=== PATIENT | female | born 1995 | race Caucasian/White ===

== ENCOUNTER 2024-01-05 19:27 | Emergency (ER) | payer MEDICAID ==
[~2024-01-05] VITALS: Ht 177.8 cm; Wt 80.0 kg
[2024-01-05 19:40] VITALS: BP 116/60; TEMP 98.4; O2SAT 99
[2024-01-05] MEDS: HYDROCODONE/ACETAMINOPHEN 5/325MG TABLET PO ONE (20:11)
[2024-01-05 20:33] LABS: BASOPHILS % 0.3 % (0.0-2.0); EOSINOPHILS % 0.9 % (0.0-5.0); HEMATOCRIT. 35.3 % (36.0-48.0); HEMOGLOBIN. 11.8 g/dL (12.0-16.0); LYMPHOCYTES % 10.7 % (20.0-50.0); MEAN CORPUSCULAR HGB CONC 33.3 g/dL (31.0-37.0); MEAN CORPUSCULAR VOLUME 90.1 fL (81.0-99.0); MEAN PLATELET VOLUME 9.1 fl (7.4-10.4); MONOCYTES % 5.1 % (2.0-8.0); PLATELET 203 x1000/uL (130-400); RED BLOOD CELL COUNT 3.92 mill/uL (4.2-5.4); RED CELL DISTRIBUTION WIDTH 12.6 % (11.6-14.6); WHITE BLOOD COUNT 8.5 x1000/uL (4.5-11.0)
[2024-01-05 20:41] LABS: CHLORIDE 107 mEq/L (98-107); POTASSIUM 3.5 mEq/L (3.5-5.1); SODIUM 142 mEq/L (136-145)
[2024-01-05 20:42] LABS: CARBON DIOXIDE 30 mEq/L (21-32)
[2024-01-05 20:43] LABS: CALCIUM 10.2 mg/dL (8.7-10.4)
[2024-01-05 20:47] LABS: CREATININE 0.8 mg/dL (0.6-1.0); GLUCOSE 105 mg/dL (70-105)
[2024-01-05 20:48] LABS: UREA NITROGEN BLOOD 13 mg/dL (9-23)
[2024-01-05 21:00] LABS: B-HCG QUANTITATIVE 3403 mIU/mL (<3)
[2024-01-05 23:06] VITALS: PULSE 88; RESP 16
== END 2024-01-05 23:08 | disposition home or self-care (01) ==
LOC: ER 19:27
DX: O20.0 Threatened abortion (principal); Z3A.01 Less than 8 weeks gestation of pregnancy
CPT/HCPCS: 36415; 76801; 80048; 81025; 84702; 85025; 86850; 86900; 99284